=== PATIENT | female | born 1955 ===

== ENCOUNTER → 2016-11-07 | Outpatient (REF) | LOC: WSOH 15:08 | DX: Z01.89 Encounter for other specified special examinations (principal) ==

== ENCOUNTER → 2016-11-10 | Outpatient (REF) | LOC: WSOH 10:30 | DX: Z01.89 Encounter for other specified special examinations (principal) ==

== ENCOUNTER → 2017-02-09 | Outpatient (REF) | LOC: WSOH 16:30 | DX: Z02.89 Encounter for other administrative examinations (principal) ==